=== PATIENT | male | born 1945 | race Caucasian/White ===

== ENCOUNTER → 2019-08-13 | Outpatient (CLI) | payer MEDICARE ==
[~2019-08-13] MED LIST: IOPAMIDOL 370 MG/ML 200 ML INFUS..BTL INJ ONE; SODIUM CHLORIDE 0.9% 100 ML ONE; SODIUM CHLORIDE 0.9% 500ML 500 ML ONE
[2019-08-13 11:16] LABS: CREATININE, SERUM 1.8 mg/dL (0.72-1.25)
--- NOTE | 2019-08-13 14:38 | Diagnostic Imaging Report ---
ADDENDUM #1 MIP and 3-D volume rendering reformations of the vasculature were obtained. Signed by: Hardy Narayanan on 08/17/2019 9:[address], CTA abdomen and pelvis with bilateral lower extremities. History: Lower extremity pain, stent placement. Comparison: <None available>. Technique: Multidetector CT scanning of the abdomen and pelvis was performed from the level of the lung bases to the feet after intravenous administration of contrast. Coronal and sagittal multiplanar reformations were obtained. RADIATION DOSE: Total DLP: 1017 mGy*cm Dose modulation, iterative reconstruction, and/or weight based adjustment of the mA/kV was utilized to reduce the radiation dose to as low as reasonably achievable. Discussion: LUNG BASES: Bibasilar fibrosis is present. ABDOMEN: Multiple simple cysts are present in both kidneys, largest in the left lower pole measuring 4.4 cm. There is no hydronephrosis or nephrolithiasis. The liver, gallbladder, biliary tree, spleen, pancreas, and adrenal glands are normal. The hepatic vein, portal vein, and splenic vein are patent. Evaluation of the bowel is limited without oral contrast. There is no bowel dilatation. The appendix is visualized and is normal. Scattered diverticuli are present throughout the colon without evidence of adjacent inflammation. There is no evidence of adenopathy or free fluid. PELVIS: The bladder, prostate, and seminal vesicles are normal in appearance. There is no evidence of free fluid or adenopathy. BONES AND SOFT TISSUES: Degenerative changes are present throughout the lumbar spine without evidence of lytic or sclerotic lesion. Left hip replacement is noted. Abdominal aorta: There is diffuse infrarenal atherosclerotic disease without focal stenosis or aneurysm. The celiac trunk, SMA, and renal arteries are patent. An aortobiiliac graft is present which is patent. 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 There is reconstitution of the internal iliac artery branches. The aortobiiliac graft ties into the proximal external iliac arteries which demonstrate diffuse atherosclerotic disease but are patent. Right lower extremity: Right common and profundus femoral arteries are patent. A stent is present within the proximal SFA which is patent. Multiple stents are also present in the distal SFA which appear patent. The popliteal artery is patent to supply the anterior tibial and peroneal arteries which are visible to the level of the distal leg. Left lower extremity: Left common femoral, profundus femoral, and superficial femoral arteries are patent. Moderate diffuse disease of the popliteal artery is present. Tibioperoneal trunk is not visible. Anterior tibial artery is patent to the distal leg. IMPRESSION: 1. Patent aortobiiliac bypass graft. 2. Patent proximal leg vessels bilaterally including multiple stents in the right SFA. 3. Two-vessel runoff on the right and single vessel runoff on the left. 4. Multiple bilateral simple renal cysts. 5. Colonic diverticulosis without evidence of diverticulitis. Signed by: Hardy Narayanan on 08/13/2019 2:35 PM
== END ==
LOC: CT 10:24
PROVIDERS: ATTEND Internal Medicine Cardiovascular Disease
DX: I73.9 Peripheral vascular disease, unspecified (principal); I25.709 Atherosclerosis of coronary artery bypass graft(s), unspecified, with unspecified angina pectoris; M79.662 Pain in left lower leg; M79.661 Pain in right lower leg; N28.1 Cyst of kidney, acquired; K57.90 Diverticulosis of intestine, part unspecified, without perforation or abscess without bleeding
CPT/HCPCS: 36415; 75635; 82565; 84520; 96360; J7040; J7050; Q9967